=== PATIENT | female | born 1975 | race Caucasian/White ===

== ENCOUNTER 2018-06-09 10:33 | Emergency (ER) | payer OTHER ==
[2018-06-09 10:44] VITALS: BP 125/83
--- NOTE | 2018-06-09 11:35 | UC ---
Respiratory Complaint HPI - HPI Summary HPI Summary: Started w/ body aches and wheezing last night. no sick contacts. has had wheezing in the past and was dx'd w/ RAD but has not had in yrs. Works w/ horses. denies sob, difficulty breathing or chest pain. - History of Current Complaint Chief Complaint: UCGeneralIllness Stated Complaint: WHEEZING CONGESTION COUGH Time Seen by Provider: 06/09/18 11:24 Hx Obtained From: Patient Hx Last Menstrual Period: 05/28/18 Pain Intensity: 7 Pain Scale Used: 0-10 Numeric Associated Signs And Symptoms: Positive: Fever, Wheezing. Negative: Dyspnea, Chills - Allergies/Home Medications Allergies/Adverse Reactions: Allergies Allergy/AdvReac Type Severity Reaction Status Date / Time codeine Allergy Severe Itch Verified 06/09/18 10:45 morphine Allergy Severe itch Verified 06/09/18 10:45 PMH/Surg Hx/FS Hx/Imm Hx Previously Healthy: Yes - Surgical History Surgical History: Yes Surgery Procedure, Year, and Place: csections x2 - Social History Alcohol Use: None Substance Use Type: None Smoking Status (MU): Never Smoked Tobacco Have You Smoked in the Last Year: No Review of Systems All Other Systems Reviewed And Are Negative: Yes Constitutional: Negative: Fever, Chills, Fatigue ENT: Negative: Sore Throat, Sinus Congestion Respiratory: Positive: Cough, Other - wheezing. Negative: Shortness Of Breath Cardiovascular: Negative: Chest Pain Musculoskeletal: Positive: Myalgia - throughout Neurological: Negative: Weakness Physical Exam Triage Information Reviewed: Yes Appearance: Well-Appearing Vital Signs: Initial Vital Signs Temp 98 F 06/09/18 10:41 Pulse 95 06/09/18 10:41 Resp 16 06/09/18 10:41 BP 125/83 06/09/18 10:41 Pulse Ox 100 06/09/18 10:41 Eyes: Positive: Conjunctiva Clear ENT: Positive: Pharynx normal, TMs normal, Uvula midline Neck: Positive: Supple, Nontender, No Lymphadenopathy. Negative: Nuchal Rigidity Respiratory: Positive: Lungs clear, Other: - coughing upon deep inhalation Cardiovascular Exam: Normal Neurological: Positive: Alert Skin: Negative: Rashes Respiratory Course/Dx - Course Course Of Treatment: Wheezing and cough, acute. No s/sx of difficulty breathing. Good O2, afebrile and on exam no abnormal lung sounds. rapid flu neg. Has hx of RAD. Using albuterol for symptoms. - Differential Dx/Diagnosis Differential Diagnosis/HQI/PQRI: Asthma, Bronchitis, Lower Resp Infection Provider Diagnosis: Bronchitis, Reactive airway disease Discharge - Sign-Out/Discharge Documenting (check all that apply): Patient Departure All imaging exams completed and their final reports reviewed: No Studies - Discharge Plan Condition: Good Disposition: HOME Prescriptions: Albuterol HFA INHALER* [Ventolin HFA Inhaler*] 1 - 2 puff INH Q6H PRN #1 mdi PRN Reason: Cough Spacer/Holding Chamber (NF) [Easivent CHAMBER (NF)] 1 unit INH DAILY PRN #1 device PRN Reason: Cough Patient Education Materials: Reactive Airways Disease (ED) Referrals: Clay Velarde MD [Primary Care Provider] - Additional Instructions: You have a viral bronchitis causing some inflammation in the bronchioles called Reactive airway disease. You mentioned you've had this in the past. the plan is to have you use the albuterol pump until the virus runs its course. please follow up with your pcp if not improving. - Billing Disposition and Condition Condition: GOOD Disposition: Home
== END 2018-06-09 11:53 | disposition home or self-care (01) ==
LOC: UCEAST 10:33
DX: J45.909 Unspecified asthma, uncomplicated (principal); Z88.5 Allergy status to narcotic agent
CPT/HCPCS: 99212; G0463